=== PATIENT | female | born 1980 | race Two or more races ===

== ENCOUNTER 2017-04-21 13:44 | Emergency (ER) | payer MEDICAID, OTHER ==
[~2017-04-21] VITALS: Ht 154.9 cm; Wt 93.0 kg
[2017-04-21 14:13] LABS: Urine RBC None Seen /hpf (0 - 4)
[2017-04-21 14:30] LABS: Urine Bilirubin Negative (Negative); Urine Blood Negative /uL (Negative); Urine Color Yellow (Yellow); Urine Glucose Normal (Normal); Urine Ketone Negative (Negative); Urine Mucus FEW (None Seen); Urine Nitrite Negative (Negative); Urine Squamous Epithelial Cell FEW /hpf (<5); Urine Urobilinogen Normal (Negative); Urine pH 5.5 (5.0-8.0)
[2017-04-21 14:40] LABS: Basophils # (auto) 0.1 uL; Basophils % (auto) 0.7 % (0.0-2.0); CONDITION Y; DEFINITIVE SEE PRINTOUT; Eosinophils # (auto) 0.3 uL; Eosinophils % (auto) 3.3 % (0.0-7.0); Hematocrit 37.6 % (36.0-46.0); Hemoglobin 12.3 g/dL (12.2-16.2); Lymphocytes % (auto) 26.4 % (10.0-50.0); Mean Corpuscular Hemoglobin 24.3 pg (28.0-32.0); Mean Corpuscular Hgb Conc. 32.7 g/dL (32.0-36.0); Mean Corpuscular Volume 74.3 fL (80.0-100.0); Mean Platelet Volume 9.3 fL (7.4-10.4); Monocytes # (auto) 0.4 uL; Monocytes % (auto) 5.8 % (0.0-12.0); Neutrophils # (auto) 4.9 uL; Neutrophils % (auto) 63.8 % (37.0-80.0); Platelet Count (auto) 332 10^3/uL (140-450); Red Cell Distribution Width 14.8 % (11.6-16.0); White Blood Cell 7.6 10^3/uL (4.4-10.8)
[2017-04-21 14:55] LABS: Potassium 3.7 mmol/L (3.5-5.1)
[2017-04-21 14:59] LABS: Albumin 3.3 g/dL (3.4-5.0); BUN/Creatinine Ratio 16.4; Calcium 8.7 mg/dL (8.5-10.1)
[2017-04-21 15:01] LABS: Bilirubin, Total 0.4 mg/dL (0.2-1.0); Total Protein 7.4 g/dL (6.4-8.2)
[2017-04-21 15:21] VITALS: BP 119/79
[2017-04-21] MEDS ORDERED: ONDANSETRON HCL 4 MG/2 ML VIAL IM ONE (16:00)
== END 2017-04-21 16:38 | disposition home or self-care (01) ==
LOC: ER 13:44
DX: K21.9 Gastro-esophageal reflux disease without esophagitis (principal); Z90.49 Acquired absence of other specified parts of digestive tract
CPT/HCPCS: 36415; 80053; 81001; 81025; 85025; 96372; 99284; J2405